=== PATIENT | female | born 1975 | race African-American/Black ===

== ENCOUNTER → 2020-07-08 | Emergency (ER) | payer SELFPAY ==
[~2020-07-08] VITALS: Ht 170.2 cm; Wt 56.8 kg
[~2020-07-08] MED LIST: ACETAMINOPHEN 500 MG TABLET PO ONE; AMLO-258 PO; KETOROLAC TROMETHAMINE 30 MG/ML VIAL IVP ONE; LISI-894 PO; MAG HYDROX/AL HYDROX/SIMETH ES 30 ML SUSPENSION UDCUP PO ONE; ONDANSETRON HCL 4 MG/2 ML VIAL IVP ONE; SODIUM CHLORIDE 0.9% 2,000 ML IV ONE
[2020-07-08 11:59] LABS: BASOPHILS % (AUTO) 2.9 % (0.0-2.0); EOSINOPHILS % (AUTO) 1.2 % (1.0-6.0); HEMATOCRIT 39.3 % (36-46); HEMOGLOBIN 13.4 g/dL (12.0-16.0); LYMPHOCYTES # (AUTO) 1.7 K/uL (1.0-4.8); LYMPHOCYTES % (AUTO) 39.4 % (22.0-44.0); MEAN CORPUSCULAR HEMOGLOBIN 32.8 pg (26.0-34.0); MEAN CORPUSCULAR HGB CONC 34.2 G/dL (31.0-37.0); MEAN CORPUSCULAR VOLUME 96 fL (80-100); MONOCYTES # (AUTO) 0.2 K/uL (0.1-1.0); MONOCYTES % (AUTO) 4.4 % (2.0-9.0); NEUTROPHILS # (AUTO) 2.3 K/uL (1.8-7.7); NEUTROPHILS % (AUTO) 52.1 % (40.0-70.0); PLATELET COUNT (AUTO) 268 K/uL (150-450); RED BLOOD CELL COUNT(AUTO) 4.08 MIL/uL (4.00-5.20); RED CELL DISTRIBUTION WIDTH 14.2 % (11.5-14.5)
[2020-07-08 12:08] VITALS: BP 158/98
[2020-07-08 12:16] LABS: ANION GAP 15 mmol/L (8-16); CALCIUM, TOTAL 8.9 mg/dL (8.8-10.5); CARBON DIOXIDE 24 mmol/L (22-29); CHLORIDE 107 mmol/L (98-107); CREATININE 0.74 mg/dL (0.60-1.30); GLOMERULAR FILTR. RATE CALC > 60 mL/min (>60); GLUCOSE,RANDOM 81 mg/dL (70-110); POTASSIUM 3.4 mmol/L (3.5-5.1); SODIUM SERUM 146 mmol/L (136-145); UREA NITROGEN, BLOOD 11 mg/dL (7-18)
[2020-07-08 12:29] LABS: ALANINE AMINOTRANSFERASE 42 U/L (12-78); ALBUMIN 4.3 g/dL (3.4-5.0); ALKALINE PHOSPHATASE 46 U/L (46-116); ASPARTATE AMINOTRANSFERASE 47 U/L (15-37); BILIRUBIN,TOTAL 0.9 mg/dL (0.1-1.0); HCG,QUANTITATIVE < 1 mIU/mL (0-6); TOTAL PROTEIN, SERUM 7.9 g/dL (6.4-8.2)
== END | disposition home or self-care (01) ==
LOC: EMS 11:43
DX: I10 Essential (primary) hypertension (principal); K29.70 Gastritis, unspecified, without bleeding; F17.210 Nicotine dependence, cigarettes, uncomplicated; Z79.899 Other long term (current) drug therapy
CPT/HCPCS: 36415; 80053; 84484; 84702; 85025; 93005; 96361; 96374; 96375; 99284; J1885; J2405; J7030

== ENCOUNTER 2020-08-07 17:05 | Emergency (ER) | payer SELFPAY ==
[~2020-08-07] VITALS: Ht 170.2 cm; Wt 56.8 kg
[~2020-08-07 17:05] MED LIST changes: -ACETAMINOPHEN 500 MG TABLET PO ONE; -KETOROLAC TROMETHAMINE 30 MG/ML VIAL IVP ONE; -MAG HYDROX/AL HYDROX/SIMETH ES 30 ML SUSPENSION UDCUP PO ONE; -ONDANSETRON HCL 4 MG/2 ML VIAL IVP ONE; -SODIUM CHLORIDE 0.9% 2,000 ML IV ONE
[2020-08-07] MEDS ORDERED: ONDANSETRON HCL 4 MG TABLET PO ONE (17:45)
[2020-08-07] MEDS ORDERED: AmLODIPine BESYLATE 5 MG TABLET PO ONE (17:45)
[2020-08-07] MEDS ORDERED: CloNIDine HCL 0.1 MG TABLET PO ONE ×2 (17:45→19:15)
[2020-08-07] MEDS ORDERED: SODIUM CHLORIDE 0.9% 1,000 ML IV ONE (18:30)
[2020-08-07 18:36] LABS: BASOPHILS % (AUTO) 3.1 % (0.0-2.0); EOSINOPHILS % (AUTO) 3.2 % (1.0-6.0); HEMATOCRIT 40.3 % (36-46); HEMOGLOBIN 13.5 g/dL (12.0-16.0); LYMPHOCYTES # (AUTO) 1.8 K/uL (1.0-4.8); LYMPHOCYTES % (AUTO) 31.6 % (22.0-44.0); MEAN CORPUSCULAR HEMOGLOBIN 32.7 pg (26.0-34.0); MEAN CORPUSCULAR HGB CONC 33.6 G/dL (31.0-37.0); MEAN CORPUSCULAR VOLUME 97 fL (80-100); MONOCYTES # (AUTO) 0.4 K/uL (0.1-1.0); MONOCYTES % (AUTO) 7.6 % (2.0-9.0); NEUTROPHILS # (AUTO) 3.1 K/uL (1.8-7.7); NEUTROPHILS % (AUTO) 54.5 % (40.0-70.0); PLATELET COUNT (AUTO) 268 K/uL (150-450); RED BLOOD CELL COUNT(AUTO) 4.14 MIL/uL (4.00-5.20); RED CELL DISTRIBUTION WIDTH 13.8 % (11.5-14.5)
[2020-08-07 18:44] LABS: ANION GAP 12 mmol/L (8-16); CALCIUM, TOTAL 9.3 mg/dL (8.8-10.5); CARBON DIOXIDE 25 mmol/L (22-29); CHLORIDE 101 mmol/L (98-107); CREATININE 0.77 mg/dL (0.60-1.30); GLOMERULAR FILTR. RATE CALC > 60 mL/min (>60); GLUCOSE,RANDOM 80 mg/dL (70-110); POTASSIUM 3.5 mmol/L (3.5-5.1); SODIUM SERUM 138 mmol/L (136-145); UREA NITROGEN, BLOOD 8 mg/dL (7-18)
[2020-08-07] MEDS ORDERED: ACETAMINOPHEN 500 MG TABLET PO ONE (18:45)
[2020-08-07 18:55] LABS: ALANINE AMINOTRANSFERASE 27 U/L (12-78); ALBUMIN 4.8 g/dL (3.4-5.0); ALKALINE PHOSPHATASE 43 U/L (46-116); ASPARTATE AMINOTRANSFERASE 20 U/L (15-37); BILIRUBIN,TOTAL 0.7 mg/dL (0.1-1.0); HCG,QUANTITATIVE < 1 mIU/mL (0-6)
[2020-08-07 20:10] VITALS: BP 148/87
== END 2020-08-07 20:21 | disposition home or self-care (01) ==
LOC: EMS 17:07
DX: I10 Essential (primary) hypertension (principal); R51.9 Headache, unspecified
CPT/HCPCS: 36415; 80053; 84484; 84702; 85025; 93005; 99285; Q0162

== ENCOUNTER 2020-09-17 13:05 | Emergency (ER) | payer MEDICAID ==
[~2020-09-17] VITALS: Ht 170.2 cm; Wt 70.5 kg
[2020-09-17] MEDS ORDERED: SODIUM CHLORIDE 0.9% 1,000 ML IV ONE (15:15)
[2020-09-17] MEDS ORDERED: KETOROLAC TROMETHAMINE 30 MG/ML VIAL IVP ONE (15:15)
[2020-09-17] MEDS ORDERED: ONDANSETRON HCL 4 MG/2 ML VIAL IVP ONE (15:15)
[2020-09-17] MEDS ORDERED: MAG HYDROX/AL HYDROX/SIMETH ES 30 ML SUSPENSION UDCUP PO ONE (15:15)
[2020-09-17] MEDS ORDERED: LORazepam 2 MG/ML VIAL IVP ONE (15:15)
[2020-09-17] MEDS ORDERED: ACETAMINOPHEN 500 MG TABLET PO ONE (15:15)
[2020-09-17 15:27] LABS: BASOPHILS % (AUTO) 3.9 % (0.0-2.0); EOSINOPHILS % (AUTO) 1.6 % (1.0-6.0); HEMATOCRIT 41.2 % (36-46); HEMOGLOBIN 13.7 g/dL (12.0-16.0); LYMPHOCYTES # (AUTO) 1.6 K/uL (1.0-4.8); LYMPHOCYTES % (AUTO) 26.2 % (22.0-44.0); MEAN CORPUSCULAR HEMOGLOBIN 31.9 pg (26.0-34.0); MEAN CORPUSCULAR HGB CONC 33.2 G/dL (31.0-37.0); MEAN CORPUSCULAR VOLUME 96 fL (80-100); MONOCYTES # (AUTO) 0.4 K/uL (0.1-1.0); MONOCYTES % (AUTO) 5.9 % (2.0-9.0); NEUTROPHILS # (AUTO) 3.7 K/uL (1.8-7.7); NEUTROPHILS % (AUTO) 62.4 % (40.0-70.0); PLATELET COUNT (AUTO) 327 K/uL (150-450); RED BLOOD CELL COUNT(AUTO) 4.28 MIL/uL (4.00-5.20)
[2020-09-17 15:38] LABS: CALCIUM, TOTAL 9.2 mg/dL (8.8-10.5); CARBON DIOXIDE 24 mmol/L (22-29); CHLORIDE 102 mmol/L (98-107); CREATININE 0.59 mg/dL (0.60-1.30); GLOMERULAR FILTR. RATE CALC > 60 mL/min (>60)
[2020-09-17 15:57] LABS: ALANINE AMINOTRANSFERASE 44 U/L (12-78); ALBUMIN 4.3 g/dL (3.4-5.0); ALKALINE PHOSPHATASE 55 U/L (46-116); ANION GAP 16 mmol/L (8-16); ASPARTATE AMINOTRANSFERASE 54 U/L (15-37); BILIRUBIN,TOTAL 0.8 mg/dL (0.1-1.0); GLUCOSE,RANDOM 81 mg/dL (70-110); HCG,QUANTITATIVE < 1 mIU/mL (0-6); LIPASE 61 U/L (73-393); POTASSIUM 3.9 mmol/L (3.5-5.1); SODIUM SERUM 142 mmol/L (136-145); TOTAL PROTEIN, SERUM 7.9 g/dL (6.4-8.2); UREA NITROGEN, BLOOD 10 mg/dL (7-18)
[2020-09-17 16:00] LABS: APPEARANCE,URINE CLEAR (CLEAR); BILIRUBIN,URINE NEGATIVE (NEGATIVE); GLUCOSE, URINE (UA) NEGATIVE (NEGATIVE); KETONES,URINE 15 mg/dL (NEGATIVE); LEUKOCYTE ESTERASE ,URINE NEGATIVE (NEGATIVE); NITRATE,URINE NEGATIVE (NEGATIVE); OCCULT BLOOD,URINE TRACE (NEGATIVE); PH,URINE 7.5 (5.0-8.0); PROTEIN,URINE TRACE (NEGATIVE)
[2020-09-17 16:22] LABS: BACTERIA,URINE None Seen /HPF (None Seen); RBC,URINE 0-2 /HPF (0-2); SQUAMOUS EPITHELIAL CELL,UR Few /LPF (None Seen); WBC,URINE None Seen /HPF (0-5)
[2020-09-17 16:53] VITALS: BP 140/92
== END 2020-09-17 18:13 | disposition home or self-care (01) ==
LOC: EMS 13:38
DX: K29.70 Gastritis, unspecified, without bleeding (principal); I10 Essential (primary) hypertension; F17.210 Nicotine dependence, cigarettes, uncomplicated; F12.90 Cannabis use, unspecified, uncomplicated; Z79.899 Other long term (current) drug therapy
CPT/HCPCS: 36415; 80053; 81001; 83690; 84484; 84702; 85025; 93005; 96361; 96374; 96375; 99284; J1885; J2060; J2405; J7030

== ENCOUNTER 2021-05-12 12:37 | Emergency (ER) | payer MEDICAID, OTHER ==
[~2021-05-12] VITALS: Ht 170.2 cm; Wt 54.5 kg
[2021-05-12] MEDS ORDERED: KETOROLAC TROMETHAMINE 30 MG/ML VIAL IVP ONE (14:15)
[2021-05-12] MEDS ORDERED: SODIUM CHLORIDE 0.9% 1,000 ML IV ONE (14:15)
[2021-05-12 15:03] LABS: BASOPHILS % (AUTO) 2.3 % (0.0-2.0); EOSINOPHILS % (AUTO) 1.7 % (1.0-6.0); HEMATOCRIT 38.1 % (36-46); LYMPHOCYTES # (AUTO) 1.8 K/uL (1.0-4.8); LYMPHOCYTES % (AUTO) 28.1 % (22.0-44.0); MEAN CORPUSCULAR HEMOGLOBIN 32.2 pg (26.0-34.0); MEAN CORPUSCULAR HGB CONC 34.2 G/dL (31.0-37.0); MEAN CORPUSCULAR VOLUME 94 fL (80-100); MONOCYTES # (AUTO) 0.3 K/uL (0.1-1.0); MONOCYTES % (AUTO) 4.8 % (2.0-9.0); NEUTROPHILS # (AUTO) 4.1 K/uL (1.8-7.7); NEUTROPHILS % (AUTO) 63.1 % (40.0-70.0); PLATELET COUNT (AUTO) 350 K/uL (150-450); RED BLOOD CELL COUNT(AUTO) 4.05 MIL/uL (4.00-5.20); RED CELL DISTRIBUTION WIDTH 13.7 % (11.5-14.5)
[2021-05-12 15:15] LABS: ANION GAP 17 mmol/L (8-16); CARBON DIOXIDE 26 mmol/L (22-29); CHLORIDE 102 mmol/L (98-107); CREATININE 0.55 mg/dL (0.60-1.30); GLUCOSE,RANDOM 68 mg/dL (70-110); POTASSIUM 3.3 mmol/L (3.5-5.1); SODIUM SERUM 145 mmol/L (136-145); UREA NITROGEN, BLOOD 12 mg/dL (7-18)
[2021-05-12 15:20] LABS: GLOMERULAR FILTR. RATE CALC > 60 mL/min (>60)
[2021-05-12] MEDS ORDERED: HYDROCODONE/ACETAMINOPHEN 5-325 MG TABLET PO ONE (15:30)
[2021-05-12] MEDS ORDERED: SODIUM CHLORIDE 0.9% 500 ML IV ONE (16:30)
[2021-05-12 17:09] VITALS: BP 157/90
== END 2021-05-12 17:30 | disposition home or self-care (01) ==
LOC: EMS 12:40
DX: I10 Essential (primary) hypertension (principal); R11.0 Nausea; F17.210 Nicotine dependence, cigarettes, uncomplicated; F12.90 Cannabis use, unspecified, uncomplicated; Z79.899 Other long term (current) drug therapy
CPT/HCPCS: 36415; 70450; 80048; 85025; 96361; 96374; 99284; J1885; J7030; J7040

== ENCOUNTER 2021-06-14 10:54 | Emergency (ER) | payer OTHER ==
[~2021-06-14] VITALS: Ht 170.2 cm; Wt 54.5 kg
[2021-06-14] MEDS ORDERED: AmLODIPine BESYLATE 10 MG TABLET PO ONE (12:45)
[2021-06-14] MEDS ORDERED: LISINOPRIL 10 MG TABLET PO ONE (13:00)
[2021-06-14 13:01] VITALS: BP 170/116
[2021-06-14] MEDS ORDERED: AMLO-258 PO (13:05)
[2021-06-14] MEDS ORDERED: LISI-894 PO (13:06)
== END 2021-06-14 13:32 | disposition left against medical advice (07) ==
LOC: EMS 10:55
DX: I10 Essential (primary) hypertension (principal); F17.210 Nicotine dependence, cigarettes, uncomplicated; F12.90 Cannabis use, unspecified, uncomplicated; Z79.899 Other long term (current) drug therapy
CPT/HCPCS: 93005; 99283